=== PATIENT | male | born 1945 | race Caucasian/White ===

== ENCOUNTER 2016-07-14 11:02 | Emergency (ER) | payer MEDICARE, OTHER ==
[~2016-07-14] VITALS: Ht 162.6 cm; Wt 64.0 kg
[~2016-07-14 11:02] MED LIST: AMLO10 PO; ASPI81 PO; ATOR20TA42 PO; CALC0.25 PO; FERR324T4 PO; FURO1TAB93 PO; HUMUINJ5 SC; IMDU30TA PO; KCL20 PO; LANTUSP SQ; LOSA50TA PO; METO50CR PO; OMEP20TA39 PO; REST30CA PO
[2016-07-14 11:07] VITALS: BP 134/56; PULSE 102; RESP 20; TEMP 98; O2SAT 97
[2016-07-14] MEDS ORDERED: HUMALOG SQ (12:42)
[2016-07-14] MEDS ORDERED: CARV3.12 PO (12:42)
[2016-07-14] MEDS ORDERED: ATOR20TA15 PO (12:42)
[2016-07-14] MEDS ORDERED: LANTUS2P SQ (12:42)
[2016-07-14] MEDS ORDERED: ASPI81CH37 CHEW (12:42)
[2016-07-14] MEDS ORDERED: TEMA30CA PO (12:42)
[2016-07-14] MEDS ORDERED: LOSA50TA PO (12:42)
[2016-07-14] MEDS ORDERED: FERR325T PO (12:42)
[2016-07-14] MEDS ORDERED: FURO1TAB60 PO (12:42)
[2016-07-14] MEDS ORDERED: OMEP20TA PO (12:42)
[2016-07-14] MEDS ORDERED: CALC0.25 PO (12:42)
[2016-07-14] MEDS ORDERED: ISOS30TA15 PO (12:42)
--- NOTE | 2016-07-14 13:59 | PD ---
HPI Chief Complaint: Pain: Acute or Chronic Time Seen by Provider: 13:47 Travel History International Travel<30 days: No Contact w/Intl Traveler<30days: No Traveled to known affect area: No History of Present Illness HPI Patient is a 71-year-old male with a history of IDDM, CHF with EF 20-25%, CKD stage III, CABG 2001 and AICD 2010 presenting with complaint of bilateral leg swelling. Patient states that this is new however he has had hospitalization for bilateral pleural effusions in January 2016 here at the time there was trace pedal edema noted. He states that the left one began 4 weeks ago he saw his PCP who told him that it was likely gout. One week from today he went to [facility] where his credit director Dr. Michael performed a right- sided thoracocentesis. He states that the pedal edema did improve somewhat. Last 2 days he's had worsening swelling in both legs and he said some pain in the right ankle. Reports pain in the left ankle has resolved. He denies fever , chills, nausea and vomiting. He denies chest pain, shortness of breath, orthopnea and DAUGHERTY. He is taking Lasix 40 mg twice a day. He denies trauma or injury to the feet or ankles. PFSH Past Medical History Cancer: No Cardiovascular Problems: Yes Congestive Heart Failure: Yes (NEW ONSET THIS VISIT) Diabetes: Yes Patient Takes Glucophage: No Endocrine: Yes Gastrointestinal Disorders: No Genitourinary: Yes Hypertension: Yes Immune Disorder: No Implanted Vascular Access Dvce: Yes Musculoskeletal: No Neurologic: No Psychiatric: No Reproductive: No Respiratory: Yes Tetanus Vaccination: Unknown Past Surgical History Cardiac Surgery: Yes (CABG 10YRS AGO PACEMAKER) Pacemaker: Yes Other Surgery: Yes Social History Alcohol Use: No Tobacco Use: No Substance Use: No Allergies-Medications (Allergen,Severity, Reaction): Coded Allergies: Shellfish (Verified Allergy, Severe, Rash, 07/14/16) Reported Meds & Prescriptions Reported Meds & Active Scripts Active Tramadol (Tramadol HCl) 50 Mg Tab 25 Mg PO Q12HR PRN Cephalexin 500 Mg Tab 500 Mg PO Q12HR Reported Humalog Inj (Insulin Human Lispro) 1,000 Unit/10 Ml Vial 1-9 Units SQ ACHS PRN Max dose at bedtime:( )units; sugars< 70,(0)units; sugars 150-199,(1)unit; sugars 200-249,(3)units; sugars 250-299,(5)units; sugars 300-349,(7)units; sugars more than 349,(9)units. Lantus Inj (Insulin Glargine) 1,000 Unit/10 Ml Vial 25 Units SQ HS Atorvastatin (Atorvastatin Calcium) 20 Mg Tab 20 Mg PO HS Calcitriol 0.25 Mcg Cap 0.25 Mcg PO DAILY Lasix (Furosemide) 40 Mg Tab 40 Mg PO BID Ferrous Sulfate 325 Mg Tab 325 Mg PO TID Omeprazole 20 Mg Tab 20 Mg PO DAILY Carvedilol 3.125 Mg Tab 3.125 Mg PO BID Isosorbide Dinitrate 30 Mg Tab 30 Mg PO DAILY Temazepam 30 Mg Cap 30 Mg PO HS PRN Losartan (Losartan Potassium) 50 Mg Tab 50 Mg PO DAILY Aspirin Low Dose (Aspirin) 81 Mg Chew 81 Mg CHEW DAILY Review of Systems Except as stated in HPI: all other systems reviewed are Neg Physical Exam Narrative GENERAL: Well-developed and well-nourished adult male in no acute distress. SKIN: Band-Aid over the right thoracocentesis site reveals very minimal scabbing without signs of cellulitis or edema. Warm and dry. Good turgor without tenting. HEAD: Normocephalic and atraumatic. EYES: PERRL bilaterally, 5mm. EOMI bilaterally. No injection or icterus present. No proptosis. Lids without edema or erythema. ENT: Buccal mucosa pink and moist. Oropharynx free of erythema, tonsillar hypertrophy, masses, swelling, asymmetry and exudates. Uvula midline and airway patent. NECK: Supple, no midline tenderness, crepitus or step-offs. Trachea midline. Minimal right-sided JVD present. Negative bilateral carotid bruits. No cervical or facial lymphadenopathy. CARDIOVASCULAR: Regular rate and rhythm without murmurs, rubs, clicks or gallops. Radial and posterior tibial pulses 2+ bilaterally. 1+ pedal edema over the distal pretibial surfaces, ankle and feet. Negative bilateral Homans sign. RESPIRATORY: Diffuse crackles in the bilateral lower lung nunez. Otherwise clear to auscultation without rhonchi or wheezing. No distress or use of accessory muscles. GASTROINTESTINAL: Non-tender, non-distended. Normal bowel sounds all 4 quadrants. No masses or organomegaly present. MUSCULOSKELETAL: Bilateral edema around the ankles and dorsum of the foot, minimal erythema without any appreciable warmth. Some tenderness with palpation of the right ankle, normal range of motion of flexion and extension of the right ankle. Patient freely moving all four extremities spontaneously. Extremities without clubbing, cyanosis, or edema. No obvious deformities. NEUROLOGIC: CN II-XII grossly intact. Awake and alert. Motor grossly within normal limits. Normal speech. PSYCHIATRIC: Appropriate mood and affect; insight and judgment normal. Data Data Last Documented VS Vital Signs Date Time Temp Pulse Resp B/P Pulse Ox O2 Delivery O2 Flow Rate FiO2 07/14/16 16:13 87 20 115/59 96 07/14/16 11:07 98.0 Room Air Orders Complete Blood Count With Diff (07/14/16 13:39) Comprehensive Metabolic Panel (07/14/16 13:39) B-Type Natriuretic Peptide (07/14/16 13:39) Act Partial Throm Time (Ptt) (07/14/16 13:39) Prothrombin Time / Inr (Pt) (07/14/16 13:39) Magnesium (Mg) (07/14/16 13:39) Ckmb (Isoenzyme) Profile (07/14/16 13:39) Troponin I (07/14/16 13:39) Electrocardiogram (07/14/16 13:39) Chest, Pa & Lat (07/14/16 13:39) Uric Acid (07/14/16 13:39) Westergren Sedimentation Rate (07/14/16 13:39) C-Reactive Protein (Crp) (07/14/16 13:39) Ankle, Complete ([id number]) (07/14/16 13:39) CKMB (07/14/16 13:50) CKMB% (07/14/16 13:50) Labs Laboratory Tests Test 07/14/16 13:50 White Blood Count 8.4 TH/MM3 Red Blood Count 3.78 MIL/MM3 Hemoglobin 10.9 GM/DL Hematocrit 33.1 % Mean Corpuscular Volume 87.6 FL Mean Corpuscular Hemoglobin 28.9 PG Mean Corpuscular Hemoglobin 33.0 % Concent Red Cell Distribution Width 15.0 % Platelet Count 168 TH/MM3 Mean Platelet Volume 10.8 FL Neutrophils (%) (Auto) 82.2 % Lymphocytes (%) (Auto) 8.2 % Monocytes (%) (Auto) 7.5 % Eosinophils (%) (Auto) 1.3 % Basophils (%) (Auto) 0.8 % Neutrophils # (Auto) 6.9 TH/MM3 Lymphocytes # (Auto) 0.7 TH/MM3 Monocytes # (Auto) 0.6 TH/MM3 Eosinophils # (Auto) 0.1 TH/MM3 Basophils # (Auto) 0.1 TH/MM3 CBC Comment DIFF FINAL Differential Comment Erythrocyte Sedimentation Rate 71 mm/hr Prothrombin Time 11.2 SEC Prothromb Time International 1.0 RATIO Ratio Activated Partial 29.9 SEC Thromboplast Time Sodium Level 140 MEQ/L Potassium Level 4.3 MEQ/L Chloride Level 105 MEQ/L Carbon Dioxide Level 23.7 MEQ/L Anion Gap 11 MEQ/L Blood Urea Nitrogen 67 MG/DL Creatinine 2.83 MG/DL Estimat Glomerular Filtration 22 ML/MIN Rate Random Glucose 214 MG/DL Uric Acid 8.7 MG/DL Calcium Level 8.7 MG/DL Magnesium Level 2.5 MG/DL Total Bilirubin 0.5 MG/DL Aspartate Amino Transf 14 U/L (AST/SGOT) Alanine Aminotransferase 37 U/L (ALT/SGPT) Alkaline Phosphatase 166 U/L Total Creatine Kinase 118 U/L Creatine Kinase MB 2.8 NG/ML Troponin I 0.03 NG/ML C-Reactive Protein 6.86 MG/DL B-Type Natriuretic Peptide 1811 PG/ML Total Protein 7.8 GM/DL Albumin 3.4 GM/DL MDM Medical Decision Making Medical Screen Exam Complete: Yes Emergency Medical Condition: Yes Interpretation(s) Laboratory Tests Test 07/14/16 13:50 White Blood Count 8.4 TH/MM3 (4.0-11.0) Red Blood Count 3.78 MIL/MM3 (4.50-5.90) Hemoglobin 10.9 GM/DL (13.0-17.0) Hematocrit 33.1 % (39.0-51.0) Mean Corpuscular Volume 87.6 FL (80.0-100.0) Mean Corpuscular Hemoglobin 28.9 PG (27.0-34.0) Mean Corpuscular Hemoglobin 33.0 % Concent (32.0-36.0) Red Cell Distribution Width 15.0 % (11.6-17.2) Platelet Count 168 TH/MM3 (150-450) Mean Platelet Volume 10.8 FL (7.0-11.0) Neutrophils (%) (Auto) 82.2 % (16.0-70.0) Lymphocytes (%) (Auto) 8.2 % (9.0-44.0) Monocytes (%) (Auto) 7.5 % (0.0-8.0) Eosinophils (%) (Auto) 1.3 % (0.0-4.0) Basophils (%) (Auto) 0.8 % (0.0-2.0) Neutrophils # (Auto) 6.9 TH/MM3 (1.8-7.7) Lymphocytes # (Auto) 0.7 TH/MM3 (1.0-4.8) Monocytes # (Auto) 0.6 TH/MM3 (0-0.9) Eosinophils # (Auto) 0.1 TH/MM3 (0-0.4) Basophils # (Auto) 0.1 TH/MM3 (0-0.2) CBC Comment DIFF FINAL Differential Comment Erythrocyte Sedimentation Rate 71 mm/hr (0-20) Prothrombin Time 11.2 SEC (9.8-11.6) Prothromb Time International 1.0 RATIO Ratio Activated Partial 29.9 SEC Thromboplast Time (24.3-30.1) Sodium Level 140 MEQ/L (136-145) Potassium Level 4.3 MEQ/L (3.5-5.1) Chloride Level 105 MEQ/L (98-107) Carbon Dioxide Level 23.7 MEQ/L (21.0-32.0) Anion Gap 11 MEQ/L (5-15) Blood Urea Nitrogen 67 MG/DL (7-18) Creatinine 2.83 MG/DL (0.60-1.30) Estimat Glomerular Filtration 22 ML/MIN (>89) Rate Random Glucose 214 MG/DL (74-106) Uric Acid 8.7 MG/DL (2.6-7.2) Calcium Level 8.7 MG/DL (8.5-10.1) Magnesium Level 2.5 MG/DL (1.5-2.5) Total Bilirubin 0.5 MG/DL (0.2-1.0) Aspartate Amino Transf 14 U/L (15-37) (AST/SGOT) Alanine Aminotransferase 37 U/L (12-78) (ALT/SGPT) Alkaline Phosphatase 166 U/L (45-117) Total Creatine Kinase 118 U/L (39-308) Creatine Kinase MB 2.8 NG/ML (0.5-3.6) Troponin I 0.03 NG/ML (0.02-0.05) C-Reactive Protein 6.86 MG/DL (0.00-0.30) B-Type Natriuretic Peptide 1811 PG/ML (0-100) Total Protein 7.8 GM/DL (6.4-8.2) Albumin 3.4 GM/DL (3.4-5.0) Last 24 hours Impressions Chest X-Ray 07/14/16 0099 Signed Impressions: Service Date/Time: June 15:16 - CONCLUSION: 1. There is a moderate right effusion and small left effusion, with compressive atelectasis of the right lung base.The effusion on the right has increased since examination from January 2016. There is global cardiomegaly. Findings may represent mild congestive heart failure. Candelario Nance MD Ankle X-Ray 07/14/16 4633 Signed Impressions: Service Date/Time: June 15:20 - CONCLUSION: 1. Soft tissue swelling of the right ankle. Vascular calcifications. No acute bony abnormality. Candelario Nance MD Differential Diagnosis CHF exacerbation vs cellulitis vs gout vs DVT vs septic joint unlikely Narrative Course Workup initiated in triage. Once a medical bed becomes available, patient will be transferred and care assumed by next provider. Patient is a 71-year-old male with history of IDDM, CHF with 2025% EF, CKD stage III, CABG and AICD presenting with complaint of swelling and pain in his feet off and on for several weeks. He is a somewhat poor historian and seems to think this is variable and has no chronic edema however given his EF and prior notes show that he does have trace bilateral pedal edema I believe this most like represents a CHF exacerbation because he additionally has fine crackles at the bases bilaterally. He has no cardiopulmonary symptoms at this time. There is very mild erythema and very minimal warmth over the feet bilaterally but he has good range of motion both ankles and only mild tenderness in the right ankle. The edema in the calves is distal just around the ankles and he has no pain with palpation of the bilateral calves. Ordered x -ray of the ankle on the right. Ordered EKG, chest x-ray, labs including BMP, troponin, uric acid, ESR and CRP. EKG sinus rhythm with marked left axis deviation and ST depression and T-wave inversion in leads 1, aVL, V5 and V6 which was present on previous EKG. CBC shows WBC of 8.4. H&H 10.9/33.1 which is chronic. Uric acid 8.7. Sedimentation rate 71. CRP 6.86. BUN 67, creatinine 2.83 again this is chronic. Glucose 214. AST 14, ALT 37, ALP 166. CK-MB 2.8. Troponin 0.03 which is lower than previous 2 visits, likely residual from poor kidney function. BNP 1811. Chest x-ray shows moderate right-sided effusion and trace left-sided effusion with prominent cardiomegaly. I reviewed this with Dr. Fernandes who looked at the chest x-ray film and recommended speaking to the patient's credit director. If he elects for outpatient follow-up will prescribe Keflex for cellulitis and have patient follow-up with his PCP. At the patient has no Tenderness or significant edema and can range the ankle normally additional workup for DVT and septic joint unnecessary. Spoke with Dr. Michael who recommends having the patient follow with him tomorrow. As the patient is asymptomatic and not hypoxic and consistently has some level of effusion he does not believe it has to be drained emergently. I spends the patient and recommended return if develops any cardiopulmonary symptoms. I did recommend he take an additional Lasix today and follow-up tomorrow with further care. I will prescribe Keflex for minimal cellulitis of the bilateral feet and given tramadol for pain.See discharge paperwork for further instructions. The plan was discussed with the patient who acknowledged their understanding and agreement. Reinforced the follow-up with primary care is critically important. Patient instructed on emergent conditions that should prompt return to ED. Diagnosis Primary Impression: Bilateral pleural effusion Additional Impression: Cellulitis Qualified Code: L03.119 - Cellulitis of lower extremity, unspecified laterality Patient Instructions: Cellulitis (ED), General Instructions Additional Instructions: Take medications as prescribed Recommend taking your furosemide 3 times today rather than the usual [address] Michael first thing in the morning to establish a follow up plan Follow up with your PCP for cellulitis tomorrow Return to the ED for any acute worsening of symptoms including worsening swelling, worsening pain, fever, chest pain, shortness of breath Med/Other Pt SpecificInfo: Prescription(s) given Scripts Tramadol 50 Mg Tab25 Mg PO Q12HR PRN (PAIN) #6 TAB Ref 0 Prov:Jackie Fernandes MD 07/14/16 Cephalexin 500 Mg [id number] Mg PO Q12HR #20 TAB Prov:Jackie Fernandes MD 07/14/16 Disposition: 01 DISCHARGE HOME Condition: Stable Spencer Osborne III Jul 14, 2016 13:59
[2016-07-14 14:14] LABS: AUTOMATED NEUTROPHIL # 6.9 TH/MM3 (1.8-7.7); BASOPHIL # 0.1 TH/MM3 (0-0.2); BASOPHIL % 0.8 % (0.0-2.0); EOSINOPHIL # 0.1 TH/MM3 (0-0.4); EOSINOPHIL % 1.3 % (0.0-4.0); HEMATOCRIT 33.1 % (39.0-51.0); HEMO FLAGS DIFF FINAL; LYMPH % 8.2 % (9.0-44.0); LYMPHOCYTE # 0.7 TH/MM3 (1.0-4.8); MEAN CELL VOLUME 87.6 FL (80.0-100.0); MEAN CORPUSCULAR HEMOGLOBIN 28.9 PG (27.0-34.0); MONO % 7.5 % (0.0-8.0); NEUT % 82.2 % (16.0-70.0); PLATELET COUNT 168 TH/MM3 (150-450); RED BLOOD COUNT 3.78 MIL/MM3 (4.50-5.90); WHITE BLOOD COUNT 8.4 TH/MM3 (4.0-11.0)
[2016-07-14 14:20] LABS: APTT (PATIENT) 29.9 SEC (24.3-30.1); PROTHROMBIN TIME - PATIENT 11.2 SEC (9.8-11.6)
[2016-07-14 14:23] LABS: ALT (GPT) 37 U/L (12-78); ANION GAP 11 MEQ/L (5-15); AST (GOT) 14 U/L (15-37); BICARBONATE 23.7 MEQ/L (21.0-32.0); BLOOD UREA NITROGEN 67 MG/DL (7-18); CHLORIDE 105 MEQ/L (98-107); GLOMERULAR FILTRATION RATE 22 ML/MIN (>89); MAGNESIUM 2.5 MG/DL (1.5-2.5); POTASSIUM 4.3 MEQ/L (3.5-5.1); SODIUM (NA) 140 MEQ/L (136-145); URIC ACID 8.7 MG/DL (2.6-7.2)
[2016-07-14 14:25] LABS: ALKALINE PHOSPHATASE 166 U/L (45-117); CREATINE KINASE 118 U/L (39-308); TOTAL BILIRUBIN ADULT 0.5 MG/DL (0.2-1.0)
[2016-07-14 14:38] LABS: CKMB 2.8 NG/ML (0.5-3.6)
--- NOTE | 2016-07-14 15:39 | RADRPT ---
EXAM DATE/TIME: 07/14/2016 15:16 [facility] COMPARISON: CHEST EXPIRATION ONLY, February 19, 2016, 15:17. INDICATIONS : Lower extremity swelling since yesterday. MEDICAL HISTORY : Myocardial infarction. Hypertension. Congestive heart failure. Dyspnea. Renal disease. Diabetes. Feve r. SURGICAL HISTORY : Pacemaker. CABG. Right toe amputated. ENCOUNTER: Initial ACUITY: 2 days PAIN SCORE: 0/10 LOCATION: Bilateral chest FINDINGS: There is global cardiomegaly. Pacer leads overlie right atrium and right ventricle. Moderate size rig ht pleural effusion. No focal consolidation. Questionable minimal interstitial edema. Trace left pleu ral fluid. No pneumothorax. CONCLUSION: 1. There is a moderate right effusion and small left effusion, with compressive atelectasis of the ri ght lung base.The effusion on the right has increased since examination from January 2016. There is global cardiomegaly. Findings may represent mild congestive heart failure. Candelario Nance MD on July 14, 2016 at 15:33 Board Certified Radiologist. This report was verified electronically.
--- NOTE | 2016-07-14 15:43 | RADRPT ---
EXAM DATE/TIME: 07/14/2016 15:20 [facility] COMPARISON: No previous studies available for comparison. INDICATIONS : Right ankle swelling since yesterday. MEDICAL HISTORY : Myocardial infarction. Hypertension. Congestive heart failure. Dyspnea. Renal disease. Diabetes. Feve r. SURGICAL HISTORY : Pacemaker. CABG. Right toe amputated. ENCOUNTER: Initial ACUITY: 2 days PAIN SCORE: 0/10 LOCATION: Right ankle. FINDINGS: There is soft tissue swelling at the ankle, especially over the lateral malleolus. There's no acute f racture or dislocation. Vascular calcifications are present. CONCLUSION: 1. Soft tissue swelling of the right ankle. Vascular calcifications. No acute bony abnormality. Candelario Nance MD on July 14, 2016 at 15:37 Board Certified Radiologist. This report was verified electronically.
[2016-07-14 16:13] VITALS: BP 115/59; PULSE 87; RESP 20; O2SAT 96
[2016-07-14] MEDS ORDERED: CEPH500T PO (16:22)
[2016-07-14] MEDS ORDERED: TRAM50TA PO (16:23)
--- NOTE | 2016-07-15 17:19 | EKG ---
Date Performed: 07/14/2016 Time Performed: 14:25:02 PTAGE: 71 years EKG: UNCERTAIN IRREGULAR RHYTHM MARKED LEFT AXIS DEVIATION MODERATE INTRAVENTRICULAR CONDUCTION DELAY ST DEVIATION AND MODERATE T-WAVE ABNORMALITY, CONSIDER LATERAL ISCHEMIA ABNORMAL ECG PREVIOUS TRACING : 07/14/2016 14.08 Rhythm remains uncertain. Largely unchanged from prior trac ing. DOCTOR: Cholo Leal Interpretating Date/Time 07/18/2016 09:23:02
== END 2016-07-14 16:50 | disposition home or self-care (01) ==
LOC: NETRI 11:02
DX: J90 Pleural effusion, not elsewhere classified (principal); L03.119 Cellulitis of unspecified part of limb; I12.9 Hypertensive chronic kidney disease with stage 1 through stage 4 chronic kidney disease, or unspecified chronic kidney disease; E11.22 Type 2 diabetes mellitus with diabetic chronic kidney disease; N18.3 Chronic kidney disease, stage 3 (moderate); I50.9 Heart failure, unspecified; M79.89 Other specified soft tissue disorders; R94.31 Abnormal electrocardiogram [ECG] [EKG]; Z79.4 Long term (current) use of insulin; Z95.1 Presence of aortocoronary bypass graft; Z95.810 Presence of automatic (implantable) cardiac defibrillator
CPT/HCPCS: 71020; 73610; 80053; 82550; 82552; 83735; 83880; 84484; 84550; 85025; 85610; 85652; 85730; 86140; 93005

== ENCOUNTER 2016-09-25 17:59 | Emergency (ER) | payer OTHER ==
[~2016-09-25] VITALS: Ht 162.6 cm; Wt 64.0 kg
[~2016-09-25 17:59] MED LIST changes: -AMLO10 PO; -ASPI81 PO; +ASPI81CH37 CHEW; +ATOR20TA15 PO; -ATOR20TA42 PO; +CARV3.12 PO; +CEPH500T PO; -FERR324T4 PO; +FERR325T PO; +FURO1TAB60 PO; -FURO1TAB93 PO; +HUMALOG SQ; -HUMUINJ5 SC; -IMDU30TA PO; +ISOS30TA15 PO; -KCL20 PO; +LANTUS2P SQ; -LANTUSP SQ; -METO50CR PO; +OMEP20TA PO; -OMEP20TA39 PO; -REST30CA PO; +TEMA30CA PO; +TRAM50TA PO
[2016-09-25 18:02] VITALS: BP 123/59; PULSE 88; RESP 24; TEMP 98.1; O2SAT 99
--- NOTE | 2016-09-25 18:26 | PD ---
HPI Chief Complaint: Respiratory Distress Time Seen by Provider: 18:11 Travel History International Travel<30 days: No Contact w/Intl Traveler<30days: No Traveled to known affect area: No History of Present Illness HPI He complains of shortness of breath. Duration is 3 days. Severity is moderate. History of recurrent right sided pleural effusion and had thoracentesis 9 days ago. He has chronic leg swelling and reports compliance with his diuretic. He says his congestive heart failure is what is the cause of his recurrent pleural effusions. He denies history of cancer. He quit smoking 10 years ago. No fever or productive cough. He is not having any chest pain. He reports recent increased weight gain due to water retention. PFSH Past Medical History Cancer: No Cardiovascular Problems: Yes (PACEMAKER) Congestive Heart Failure: Yes (NEW ONSET THIS VISIT) Diabetes: Yes Endocrine: Yes Gastrointestinal Disorders: No Genitourinary: Yes Hypertension: Yes Immune Disorder: No Implanted Vascular Access Dvce: Yes Musculoskeletal: No Neurologic: No Psychiatric: No Reproductive: No Respiratory: Yes Past Surgical History Cardiac Surgery: Yes (CABG 10YRS AGO PACEMAKER) Pacemaker: Yes Other Surgery: Yes Social History Alcohol Use: No Tobacco Use: No Substance Use: No Allergies-Medications (Allergen,Severity, Reaction): Coded Allergies: Shellfish (Verified Allergy, Severe, Rash, 07/14/16) Reported Meds & Prescriptions Reported Meds & Active Scripts Active Tramadol (Tramadol HCl) 50 Mg Tab 25 Mg PO Q12HR PRN Cephalexin 500 Mg Tab 500 Mg PO Q12HR Reported Humalog Inj (Insulin Human Lispro) 1,000 Unit/10 Ml Vial 1-9 Units SQ ACHS PRN Max dose at bedtime:( )units; sugars< 70,(0)units; sugars 150-199,(1)unit; sugars 200-249,(3)units; sugars 250-299,(5)units; sugars 300-349,(7)units; sugars more than 349,(9)units. Lantus Inj (Insulin Glargine) 1,000 Unit/10 Ml Vial 25 Units SQ HS Atorvastatin (Atorvastatin Calcium) 20 Mg Tab 20 Mg PO HS Calcitriol 0.25 Mcg Cap 0.25 Mcg PO DAILY Lasix (Furosemide) 40 Mg Tab 40 Mg PO BID Ferrous Sulfate 325 Mg Tab 325 Mg PO TID Omeprazole 20 Mg Tab 20 Mg PO DAILY Carvedilol 3.125 Mg Tab 3.125 Mg PO BID Isosorbide Dinitrate 30 Mg Tab 30 Mg PO DAILY Temazepam 30 Mg Cap 30 Mg PO HS PRN Losartan (Losartan Potassium) 50 Mg Tab 50 Mg PO DAILY Aspirin Low Dose (Aspirin) 81 Mg Chew 81 Mg CHEW DAILY Review of Systems General / Constitutional: Positive: Weight Gain, No: Fever Eyes: No: Visual changes HENT: No: Headaches Cardiovascular: Positive: Edema, No: Chest Pain or Discomfort Respiratory: Positive: Shortness of Breath Gastrointestinal: No: Abdominal Pain Genitourinary: No: Dysuria Musculoskeletal: Positive: Edema, No: Pain Skin: No Rash Neurologic: No: Weakness Psychiatric: No: Depression Endocrine: No: Polydipsia Hematologic/Lymphatic: No: Easy Bruising Physical Exam Narrative GENERAL: Well-nourished, well-developed patient in no apparent distress. SKIN: Focused skin assessment reveals no rash and nodules. Skin is Warm and dry. HEAD: Atraumatic. Normocephalic. EYES: Pupils equal and round. No scleral icterus. No injection or drainage. ENT: No nasal bleeding or discharge. Mucous membranes pink and moist. NECK: Trachea midline. No JVD. CARDIOVASCULAR: Regular rate and rhythm. No murmur appreciated. RESPIRATORY: No accessory muscle use. Clear to auscultation. Breath sounds equal bilaterally. GASTROINTESTINAL: Abdomen soft, non-tender, nondistended. Hepatic and splenic margins not palpable. MUSCULOSKELETAL: No obvious deformities. No clubbing. No cyanosis. Symmetric edema the feet ankles and lower legs NEUROLOGICAL: Awake and alert. No obvious cranial nerve deficits. Motor grossly within normal limits. Normal speech. PSYCHIATRIC: Appropriate mood and affect; insight and judgment normal. Data Data Last Documented VS Vital Signs Date Time Temp Pulse Resp B/P Pulse Ox O2 Delivery O2 Flow Rate FiO2 09/25/16 18:32 96 09/25/16 18:02 98.1 88 24 123/59 Orders Electrocardiogram (09/25/16 ) Chest, Single Ap (09/25/16 ) [facility] Medical Decision Making Medical Screen Exam Complete: Yes Emergency Medical Condition: Yes Medical Record Reviewed: Yes Differential Diagnosis Recurrent pleural effusion, pneumonia, CHF Narrative Course I have reviewed the patient's electronic medical record. Patient was here June 2016 for pleural effusion I reviewed today's chest x-ray and compared it to the one in June. He does have a moderate pleural effusion today but it's not quite as large as it was in June Saturation is 99% on room air and he is not dyspneic No indication for emergent thoracentesis or hospitalization This is a chronic problem he's had for a long time I reviewed his EKG which shows no acute ST elevation. No indication of ACS, he had no chest pain or discomfort I gave him a 2 mg dose of Bumex now Recommend he double his Bumex for the next 3 days Discussed low-sodium diet and knee high compression stockings and elevation of legs He should call his high school music teacher tomorrow for follow-up Diagnosis Primary Impression: Pleural effusion due to CHF (congestive heart failure) Additional Instructions: Take 2 mg of Bumex twice a day for the next 3 days then return to normal dosing Avoid salt in diet Wear knee-high compression stockings Elevate legs Call your high school music teacher tomorrow for follow-up Med/Other Pt SpecificInfo: Other Disposition: 01 DISCHARGE HOME Condition: Stable Frederic Ayala MD Sep 25, 2016 18:26
--- NOTE | 2016-09-25 18:55 | RADRPT ---
EXAM DATE/TIME: 09/25/2016 18:23 [facility] COMPARISON: CHEST PA & LAT, July 14, 2016, 15:16. INDICATIONS : Shortness of breath. MEDICAL HISTORY : SURGICAL HISTORY : Pacemaker. ENCOUNTER: Initial ACUITY: 1 day PAIN SCORE: 0/10 LOCATION: Bilateral chest FINDINGS: Right basilar opacity is present may be due to a combination of consolidation and or pleural effusion . There is evidence for prior median sternotomy. Left subclavian pacer wires are present with tips in the right atrium and right ventricle. Cardiomegaly has not changed. There are atherosclerotic calcif ications of the aorta due to chronic atherosclerotic disease. CONCLUSION: No appreciable change. Princess Zapata MD on September 25, 2016 at 18:52 Board Certified Radiologist. This report was verified electronically.
[2016-09-25] MEDS ORDERED: BUMETANIDE 1 MG TAB PO ONE (19:00)
--- NOTE | 2016-09-26 22:58 | EKG ---
Date Performed: 09/25/2016 Time Performed: 18:29:32 PTAGE: 71 years EKG: JUNCTIONAL RHYTHM LEFT ANTERIOR FASCICULAR BLOCK ST DEVIATION AND MODERATE T-WAVE ABNORMALI TY, CONSIDER LATERAL ISCHEMIA ABNORMAL ECG PREVIOUS TRACING : 07/14/2016 14.25 Compared to prior tracing no significant change DOCTOR: Magno Copeland Interpretating Date/Time 09/26/2016 22:58:26
== END 2016-09-25 19:19 | disposition home or self-care (01) ==
LOC: NEPC 17:59
DX: J90 Pleural effusion, not elsewhere classified (principal); I50.9 Heart failure, unspecified; I10 Essential (primary) hypertension; Z87.891 Personal history of nicotine dependence
CPT/HCPCS: 71010; 93005

== ENCOUNTER 2016-10-20 21:58 | Inpatient (IN) | payer OTHER, MEDICARE ==
[~2016-10-20 21:58] MED LIST changes: -CEPH500T PO; -FURO1TAB60 PO; -TRAM50TA PO
[2016-10-20 22:01] VITALS: BP 123/80; PULSE 112; RESP 18; TEMP 99.7; O2SAT 97
--- NOTE | 2016-10-20 22:20 | PD ---
HPI Chief Complaint: Fever Time Seen by Provider: 22:20 Travel History International Travel<30 days: No Contact w/Intl Traveler<30days: No Traveled to known affect area: No History of Present Illness HPI 71-year-old male came to the emergency room brought by his and son with history of fever. Patient has severe cardiomyopathy and sees crystallographer from [facility] in [place]. He had a PICC line put in for IV dobutamine 2 weeks ago. Patient is on continuous infusion for that. Patient says he was eating his dinner with his family when all of a sudden he started getting chills and rigor. Family took his temperature and it was 101.7. They consulted with the nurse over the phone and gave him Advil and Tylenol. And then decided to bring him to the emergency room. Patient is awake and answering questions appropriately. His temperature is 99.7. He has some shortness of breath but not coughing. Patient says he has an appointment with his cardiologists at [facility] more morning. His blood pressure was 88 systolic on arrival. Patient denies any dizziness or lightheadedness. [facility] Past Medical History Narrative Medical List of his past medical, surgical, social and family history was reviewed from the nursing note. Cancer: No Cardiovascular Problems: Yes (PACEMAKER) Congestive Heart Failure: Yes (NEW ONSET THIS VISIT) Diabetes: Yes Patient Takes Glucophage: No Endocrine: Yes Gastrointestinal Disorders: No Genitourinary: Yes Hypertension: Yes Immune Disorder: No Implanted Vascular Access Dvce: Yes Musculoskeletal: No Neurologic: No Psychiatric: No Reproductive: No Respiratory: Yes ?: Not Past Surgical History Cardiac Surgery: Yes (CABG 10YRS AGO PACEMAKER) Pacemaker: Yes Other Surgery: Yes Social History Alcohol Use: No Tobacco Use: No Substance Use: No Allergies-Medications (Allergen,Severity, Reaction): Coded Allergies: Shellfish (Verified Allergy, Severe, Rash, 09/25/16) Comments List of his allergies reviewed from the nursing note. Reported Meds & Prescriptions Reported Meds & Active Scripts Active Reported Ciprofloxacin Opth Drops (Ciprofloxacin HCl) 0.3% Soln 2 Drop RIGHT EYE Q2H while awake x 5 days. Durezol Opth (Difluprednate Opth) 0.05% Emul Dobutamine-D5W 500 Mg/250 Ml Bag Humalog Inj (Insulin Human Lispro) 1,000 Unit/10 Ml Vial 1-9 Units SQ ACHS PRN Max dose at bedtime:( )units; sugars< 70,(0)units; sugars 150-199,(1)unit; sugars 200-249,(3)units; sugars 250-299,(5)units; sugars 300-349,(7)units; sugars more than 349,(9)units. Lantus Inj (Insulin Glargine) 1,000 Unit/10 Ml Vial 25 Units SQ HS Atorvastatin (Atorvastatin Calcium) 20 Mg Tab 20 Mg PO HS Calcitriol 0.25 Mcg Cap 0.25 Mcg PO DAILY Omeprazole 20 Mg Tab 20 Mg PO DAILY Carvedilol 3.125 Mg Tab 3.125 Mg PO BID Isosorbide Dinitrate 30 Mg Tab 30 Mg PO DAILY Temazepam 30 Mg Cap 30 Mg PO HS PRN Aspirin Low Dose (Aspirin) 81 Mg Chew 81 Mg CHEW DAILY Narrative Medication List of his home medications reviewed from the nursing note. Review of Systems Except as stated in HPI: all other systems reviewed are Neg Physical Exam Narrative GENERAL: Awake, alert, moderate distress SKIN: Focused skin assessment warm/dry. Pale HEAD: Atraumatic. Normocephalic. EYES: Pupils equal and round. No scleral icterus. No injection or drainage. Pallor ENT: No nasal bleeding or discharge. Mucous membranes pink and moist. NECK: Trachea midline. No JVD. CARDIOVASCULAR: Regular rate and rhythm. No murmur appreciated. RESPIRATORY: No accessory muscle use. Coarse crackles in the right base. Clear to auscultation. Breath sounds equal bilaterally. GASTROINTESTINAL: Abdomen soft, non-tender, nondistended. Hepatic and splenic margins not palpable. MUSCULOSKELETAL: No obvious deformities. No clubbing. No cyanosis. No edema. NEUROLOGICAL: Awake and alert. No obvious cranial nerve deficits. Motor grossly within normal limits. Normal speech. PSYCHIATRIC: Appropriate mood and affect; insight and judgment normal. Data Data Last Documented VS Vital Signs Date Time Temp Pulse Resp B/P Pulse Ox O2 Delivery O2 Flow Rate FiO2 10/21/16 00:10 73/42 10/20/16 22:48 18 96 10/20/16 22:01 99.7 112 Room Air Orders Complete Blood Count With Diff (10/20/16 22:28) Comprehensive Metabolic Panel (10/20/16 22:28) Lactic Acid Sepsis Protocol (10/20/16 22:28) Urinalysis - C+S If Indicated (10/20/16 22:28) Blood Culture (10/20/16 22:28) Chest, Single Ap (10/20/16 22:28) Blood Glucose (10/20/16 22:28) Ecg Monitoring (10/20/16 22:28) Iv Access Insert/Monitor (10/20/16 22:28) Oximetry (10/20/16 22:28) Oxygen Administration (10/20/16 22:28) Sodium Chlorid 0.9% 500 Ml Inj (Ns 500 M (10/20/16 23:00) Piperacil-Tazo 4.5 Gm Premix (Zosyn 4.5 (10/20/16 23:00) Vancomycin Inj (Vancomycin Inj) (10/20/16 23:00) Norepinephrine-Dextrose Drip (Levophed-D (10/21/16 00:15) Terbutaline Inj (Brethine Inj) (10/21/16 00:15) Lactic Acid Sepsis Protocol (10/21/16 00:08) Admit Order (Ed Use Only) (10/21/16 00:22) Labs Laboratory Tests Test 10/20/16 22:41 White Blood Count 7.1 TH/MM3 Red Blood Count 3.29 MIL/MM3 Hemoglobin 8.4 GM/DL Hematocrit 26.2 % Mean Corpuscular Volume 79.5 FL Mean Corpuscular Hemoglobin 25.6 PG Mean Corpuscular Hemoglobin 32.2 % Concent Red Cell Distribution Width 17.0 % Platelet Count 141 TH/MM3 Mean Platelet Volume 10.1 FL Neutrophils (%) (Auto) 87.4 % Lymphocytes (%) (Auto) 3.2 % Monocytes (%) (Auto) 5.9 % Eosinophils (%) (Auto) 3.3 % Basophils (%) (Auto) 0.2 % Neutrophils # (Auto) 6.2 TH/MM3 Lymphocytes # (Auto) 0.2 TH/MM3 Monocytes # (Auto) 0.4 TH/MM3 Eosinophils # (Auto) 0.2 TH/MM3 Basophils # (Auto) 0.0 TH/MM3 CBC Comment DIFF FINAL Differential Comment Lactic Acid Level 1.8 mmol/L Sodium Level 134 MEQ/L Potassium Level 3.9 MEQ/L Chloride Level 97 MEQ/L Carbon Dioxide Level 21.9 MEQ/L Anion Gap 15 MEQ/L Blood Urea Nitrogen 75 MG/DL Creatinine 3.92 MG/DL Estimat Glomerular Filtration 15 ML/MIN Rate Random Glucose 52 MG/DL Calcium Level 7.9 MG/DL Total Bilirubin 0.7 MG/DL Aspartate Amino Transf 23 U/L (AST/SGOT) Alanine Aminotransferase 29 U/L (ALT/SGPT) Alkaline Phosphatase 147 U/L Total Protein 6.7 GM/DL Albumin 2.7 GM/DL MDM Medical Decision Making Medical Screen Exam Complete: Yes Emergency Medical Condition: Yes Medical Record Reviewed: Yes Differential Diagnosis Sepsis, pneumonia, UTI Narrative Course 12:41 AM blood test results are back and patient has slight anemia and thrombocytopenia. His renal function is significantly compromised. I discussed the case with the crystallographer at [facility] in [place] Dr. Millard. He wanted the patient to be stabilized before being transferred to the hospital. He wanted the patient to be admitted to the ICU under our safe and vault installer service. I have discussed the case with Dr. Leroy from ICU who has accepted the patient. I let the patient and his family know about this plan and they're comfortable with it. Patient was given IV Zosyn and vancomycin to cover for sepsis. Given his poor cardiac condition IV gave him only 500 cc of IV fluid bolus. The crystallographer from [place] agreed with this. His blood pressure continued to be low and the last blood pressure was 73/45 and I have started him on a norepinephrine drip. Critical Care Narrative Aggregate critical care time was 75 minutes. Time to perform other separately billable procedures was not included in the critical care time. My time did not include minutes spent treating any other patients simultaneously or on activities that did not directly contribute to the patient's treatment. The services I provided to this patient were to treat and/or prevent clinically significant deterioration that could result in: Septic shock, cardiomyopathy I provided critical care services requiring my management, as noted below: Chart data review, documentation time, medication orders and management, vital sign assessments/reviewing monitor data, ordering and reviewing lab tests, ordering and interpreting/reviewing x-rays and diagnostic studies, care of the patient and discussion of the patient with the admitting physicians. Procedures EKG Prior to Arrival: No Physician Communication Physician Communication Dr. Leroy, Dr. millard Diagnosis Primary Impression: Septic shock Additional Impressions: Cardiomyopathy Qualified Code: I42.9 - Cardiomyopathy, unspecified type Renal failure Qualified Code: N19 - Renal failure, unspecified chronicity Admitting Information Admitting Physician Requests: Jackie Simmons MD October 20, 2016 22:20 treating any other patients simultaneously or on activities that did not directly contribute to the patient's treatment. The services I provided to this patient were to treat and/or prevent clinically significant deterioration that could result in: Septic shock, cardiomyopathy I provided critical care services requiring my management, as noted below: Chart data review, documentation time, medication orders and management, vital sign assessments/reviewing monitor data, ordering and reviewing lab tests, ordering and interpreting/reviewing x-rays and diagnostic studies, care of the patient and discussion of the patient with the admitting physicians. Procedures EKG Prior to Arrival: No Physician Communication Physician Communication Dr. Leroy, Dr. millard Diagnosis Primary Impression: Septic shock Additional Impressions: Cardiomyopathy Qualified Code: I42.9 - Cardiomyopathy, unspecified type Renal failure Qualified Code: N19 - Renal failure, unspecified chronicity Admitting Information Admitting Physician Requests: Jackie Simmons MD October 20, 2016 22:20
[2016-10-20 22:48] VITALS: RESP 18; O2SAT 96
--- NOTE | 2016-10-20 22:55 | RADRPT ---
EXAM DATE/TIME: 10/20/2016 22:44 [place] COMPARISON: CHEST SINGLE AP, September 25, 2016, 18:23. INDICATIONS : Cough and fever for a few days. MEDICAL HISTORY : Myocardial infarction. Hypertension. Congestive heart failure. Dyspnea. Renal disease. Diabetes. SURGICAL HISTORY : Pacemaker. CABG. Right toe amputated. ENCOUNTER: Initial ACUITY: 3 days PAIN SCORE: 2/10 LOCATION: Bilateral chest FINDINGS: A single view of the chest demonstrates the right-sided PICC line, left subclavian bipolar pacer in n umerous sternal wires are unchanged. The heart remains enlarged. Bilateral pleural effusions moderate on the right tiny on the left. No significant interval change since August. Osseous structures are i ntact. CONCLUSION: Stable bilateral pleural effusions right clearly larger than left. Heart remains enlarged.. Jhonny Steele MD on October 20, 2016 at 22:53 Board Certified Radiologist. This report was verified electronically.
[2016-10-20 22:59] VITALS: BP 80/58
[2016-10-20] MEDS ORDERED: DIFL0.0512 (22:59)
[2016-10-20] MEDS ORDERED: CIPR0.3S2 RIGHT EYE (22:59)
[2016-10-20] MEDS ORDERED: [UNRECOGNIZED DRUG - CODE] (22:59)
[2016-10-20] MEDS ORDERED: PIPERACIL-TAZO 4.5 GM PREMIX 100 ML IV ONE (23:00)
[2016-10-20] MEDS ORDERED: VANCOMYCIN INJ 1,000 MG in SODIUM CHLOR 0.9% 250 ML INJ 250 ML IV ONE (23:00)
[2016-10-20] MEDS ORDERED: SODIUM CHLORID 0.9% 500 ML INJ 500 ML IV ONE (23:00)
[2016-10-20 23:09] LABS: AUTOMATED NEUTROPHIL # 6.2 TH/MM3 (1.8-7.7); BASOPHIL % 0.2 % (0.0-2.0); EOSINOPHIL # 0.2 TH/MM3 (0-0.4); EOSINOPHIL % 3.3 % (0.0-4.0); HEMATOCRIT 26.2 % (39.0-51.0); HEMO FLAGS DIFF FINAL; LYMPH % 3.2 % (9.0-44.0); LYMPHOCYTE # 0.2 TH/MM3 (1.0-4.8); MEAN CELL VOLUME 79.5 FL (80.0-100.0); MEAN CORPUSCULAR HEMOGLOBIN 25.6 PG (27.0-34.0); MEAN CORPUSCULAR HGB CONC 32.2 % (32.0-36.0); MONO % 5.9 % (0.0-8.0); NEUT % 87.4 % (16.0-70.0); PLATELET COUNT 141 TH/MM3 (150-450); RED BLOOD COUNT 3.29 MIL/MM3 (4.50-5.90); WHITE BLOOD COUNT 7.1 TH/MM3 (4.0-11.0)
[2016-10-20 23:34] LABS: AST (GOT) 23 U/L (15-37); BICARBONATE 21.9 MEQ/L (21.0-32.0); BLOOD UREA NITROGEN 75 MG/DL (7-18); GLOMERULAR FILTRATION RATE 15 ML/MIN (>89)
[2016-10-20 23:38] LABS: ALKALINE PHOSPHATASE 147 U/L (45-117); ALT (GPT) 29 U/L (12-78); TOTAL BILIRUBIN ADULT 0.7 MG/DL (0.2-1.0)
[2016-10-21] VITALS (16 sets, daily range): BP systolic 73–126; BP diastolic 42–58; PULSE 70–95; RESP 18–26; TEMP 97.6–98; O2SAT 94–98
[2016-10-21] MEDS ORDERED: TERBUTALINE INJ 1 MG/ML AMP SQ PRN (00:15)
[2016-10-21] MEDS ORDERED: NOREPINEPHRINE-DEXTROSE DRIP 250 ML IV SCH (00:15)
[2016-10-21 00:17] LABS: ANION GAP 15 MEQ/L (5-15); CHLORIDE 97 MEQ/L (98-107); POTASSIUM 3.9 MEQ/L (3.5-5.1); SODIUM (NA) 134 MEQ/L (136-145)
[2016-10-21] MEDS ORDERED: SODIUM CHLOR 0.9% 1000 ML INJ 1,000 ML IV SCH (00:31)
[2016-10-21] MEDS ORDERED: LACTULOSE SYRUP 20 GM/30 ML CUP PO PRN (00:45)
[2016-10-21] MEDS ORDERED: RESP: ALBUTEROL 2.5 MG/IPRATROPIUM 0.5 MG NEB (PRN) INH (00:45)
[2016-10-21] MEDS ORDERED: SENNOSIDES 8.6 MG TAB PO PRN (00:45)
[2016-10-21] MEDS ORDERED: ONDANSETRON HCL 4 MG/2 ML VIAL IV PRN (00:45)
[2016-10-21] MEDS ORDERED: CHLORHEXIDINE GLUCONATE 2 % 1 PACK (2 CLOTHS) TOP PRN (00:45)
[2016-10-21] MEDS ORDERED: MAGNESIUM HYDROXIDE SUSP 30 ML CUP PO PRN (00:45)
[2016-10-21] MEDS ORDERED: ACETAMINOPHEN 325 MG TAB PO PRN (00:45)
[2016-10-21] MEDS ORDERED: BISACODYL 10 MG SUPP RECTAL PRN (00:45)
[2016-10-21] MEDS ORDERED: TEMAZEPAM 15 MG CAP PO PRN (00:45)
[2016-10-21] MEDS ORDERED: MISCELLANEOUS NURSING INFORMATION XX SCH (00:45)
--- NOTE | 2016-10-21 01:44 | HHI.HP ---
HPI Service Critical Care Medicine Primary Care Physician Fay Rubalcava MD Admission Diagnosis septic shock, severe cardiomyopathy Diagnosis: Chief Complaint: Fever, chills. Travel History International Travel<30 Days: No Contact w/Intl Traveler <30 Da: No Traveled to Known Affected Are: No History of Present Illness 71 y/o man presents with acute onset fever and chills. Initial BP in ED normotensive, but thereafter hypotensive with MAP 52 - 62 range. Skin clammy, tepid. He is diaphoretic. Temp 101.7 at home, 99.7 in ED. Has absolutely no complaints of pain, nausea, dysuria, cough. PICC placed 2-3 weeks ago at [facility] right arm for continuous dobutamine therapy. CKD, DM, 2. He looks surprisingly well but is clearly diaphoretic. PIP/LATRELL and vancomycin started in ED. Past Family Social History Allergies: Coded Allergies: Shellfish (Verified Allergy, Severe, Rash, 09/25/16) Past Medical History Past Medical History Narrative Medical List of his past medical, surgical, social and family history was reviewed from the nursing note. Cancer: No Cardiovascular Problems: Yes (PACEMAKER) Congestive Heart Failure: Yes (NEW ONSET THIS VISIT) Diabetes: Yes Patient Takes Glucophage: No Endocrine: Yes Gastrointestinal Disorders: No Genitourinary: Yes Hypertension: Yes Immune Disorder: No Implanted Vascular Access Dvce: Yes Musculoskeletal: No Neurologic: No Psychiatric: No Reproductive: No Respiratory: Yes ?: Not Past Surgical History Cardiac Surgery: Yes (CABG 10YRS AGO PACEMAKER) Pacemaker: Yes Other Surgery: Yes Social History Alcohol Use: No Tobacco Use: No Substance Use: No Allergies-Medications Allergies-Medications (Allergen,Severity, Reaction): Coded Allergies: Shellfish (Verified Allergy, Severe, Rash, 09/25/16) Comments List of his allergies reviewed from the nursing note. Reported Meds & Prescriptions Reported Meds & Active Scripts Active Reported Ciprofloxacin Opth Drops (Ciprofloxacin HCl) 0.3% Soln 2 Drop RIGHT EYE Q2H while awake x 5 days. Durezol Opth (Difluprednate Opth) 0.05% Emul Dobutamine-D5W 500 Mg/250 Ml Bag Humalog Inj (Insulin Human Lispro) 1,000 Unit/10 Ml Vial 1-9 Units SQ ACHS PRN Max dose at bedtime:( )units; sugars< 70,(0)units; sugars 150-199,(1)unit; sugars 200-249,(3)units; sugars 250-299,(5)units; sugars 300-349,(7)units; sugars more than 349,(9)units. Lantus Inj (Insulin Glargine) 1,000 Unit/10 Ml Vial 25 Units SQ HS Atorvastatin (Atorvastatin Calcium) 20 Mg Tab 20 Mg PO HS Calcitriol 0.25 Mcg Cap 0.25 Mcg PO DAILY Omeprazole 20 Mg Tab 20 Mg PO DAILY Carvedilol 3.125 Mg Tab 3.125 Mg PO BID Isosorbide Dinitrate 30 Mg Tab 30 Mg PO DAILY Temazepam 30 Mg Cap 30 Mg PO HS PRN Losartan (Losartan Potassium) 50 Mg Tab 50 Mg PO DAILY Aspirin Low Dose (Aspirin) 81 Mg Chew 81 Mg CHEW DAILY Physical Exam Vital Signs Vital Signs Date Time Temp Pulse Resp B/P Pulse Ox O2 Delivery O2 Flow Rate FiO2 10/21/16 01:03 81 18 100/53 95 10/21/16 00:34 91 18 92/47 95 10/21/16 00:10 73/42 10/20/16 22:59 80/58 10/20/16 22:48 18 96 10/20/16 22:01 99.7 112 18 123/80 97 Room Air Physical Exam P 88, BP 72/47, R 15, Sats 93% Head: Normal. Neck: Supple, no pain to motion. Airway widely patent. Lungs: Bilateral crackles, good air entry, comfortable respiratory pattern. Heart: RRR with frequent ectopic beat. 2/6 sys mur at apex.Neck veins are full when HOB elevated 30 degrees. Abdomen: Benign, soft. No tenderness or guarding. BS active. Extremities: Tepid but well perfused. No edema. Skin: Clammy, diaphoretic. Neuro: O X 3, alert, cooperative. Moves 4 limbs to command. Laboratory Laboratory Tests Test 10/20/16 22:41 White Blood Count 7.1 Red Blood Count 3.29 Hemoglobin 8.4 Hematocrit 26.2 Mean Corpuscular Volume 79.5 Mean Corpuscular Hemoglobin 25.6 Mean Corpuscular Hemoglobin 32.2 Concent Red Cell Distribution Width 17.0 Platelet Count 141 Mean Platelet Volume 10.1 Neutrophils (%) (Auto) 87.4 Lymphocytes (%) (Auto) 3.2 Monocytes (%) (Auto) 5.9 Eosinophils (%) (Auto) 3.3 Basophils (%) (Auto) 0.2 Neutrophils # (Auto) 6.2 Lymphocytes # (Auto) 0.2 Monocytes # (Auto) 0.4 Eosinophils # (Auto) 0.2 Basophils # (Auto) 0.0 CBC Comment DIFF FINAL Differential Comment Lactic Acid Level 1.8 Sodium Level 134 Potassium Level 3.9 Chloride Level 97 Carbon Dioxide Level 21.9 Anion Gap 15 Blood Urea Nitrogen 75 Creatinine 3.92 Estimat Glomerular Filtration 15 Rate Random Glucose 52 Calcium Level 7.9 Total Bilirubin 0.7 Aspartate Amino Transf 23 (AST/SGOT) Alanine Aminotransferase 29 (ALT/SGPT) Alkaline Phosphatase 147 Total Protein 6.7 Albumin 2.7 Date/Time Procedure Status Source Growth 10/20/16 22:41 Aerobic Blood Culture Received Blood Peripheral Pending 10/20/16 22:41 Anaerobic Blood Culture Received Blood Peripheral Pending Result Diagram: 10/20/16224010/20/162240 Assessment and Plan Assessment and Plan Assessment: 1. Severe sepsis. 2. End-stage ischemic cardiomyopathy, continuous dobutamine infusion. 3. CKD. 4. DM, Type 2 Plan: 1. No additional hydration. 2. Continue dobutamine. 3. Hold isosorbide for MAP < 65. 4. Continue carvedilol. 5. Levophed only for MAP < 60. 6. Heparin sq BID. 7. Continue PIP/LATRELL, hold additional vancomycin pending level. Overall impression: He is critically ill with circulatory shock, likely infectious etiology. His CXR is clear, no cough. No urinary symptoms. If UA clear will need to remove the PICC line. Blood cultures drawn. Critical Care 45 mins Pa Leroy MD October 21, 2016 01:44
[2016-10-21 03:49] LABS: BLOOD, URINE NEG (NEG); GLUCOSE,URINE NEG (NEG); KETONE, URINE NEG (NEG); NITRITE,URINE NEG (NEG); URINE COLOR YELLOW (YELLW/STRAW)
[2016-10-21 03:50] LABS: COMMENT (UR) CATH-CULT NOT IND; CULTURE IF INDICATED CATH CULTURE NOT IND
[2016-10-21] MEDS: HEPARIN SODIUM - SQ 10,000 UNITS/ML VIAL SQ SCH ×2 (03:52→13:11)
[2016-10-21] MEDS ORDERED: CHLORHEXIDINE GLUCONATE 2 % 1 PACK (2 CLOTHS) TOP SCH (04:00)
[2016-10-21] MEDS: PIPERACIL-TAZO 2.25 GM PREMIX 50 ML IV SCH ×2 (06:55→13:11)
[2016-10-21 09:00] LABS: AUTOMATED NEUTROPHIL # 3.8 TH/MM3 (1.8-7.7); BASOPHIL % 0.4 % (0.0-2.0); EOSINOPHIL # 0.3 TH/MM3 (0-0.4); EOSINOPHIL % 6.2 % (0.0-4.0); HEMATOCRIT 26.4 % (39.0-51.0); HEMO FLAGS DIFF FINAL; LYMPH % 5.6 % (9.0-44.0); LYMPHOCYTE # 0.3 TH/MM3 (1.0-4.8); MEAN CELL VOLUME 81.9 FL (80.0-100.0); MEAN CORPUSCULAR HEMOGLOBIN 25.8 PG (27.0-34.0); MEAN CORPUSCULAR HGB CONC 31.5 % (32.0-36.0); MONO % 7.1 % (0.0-8.0); NEUT % 80.7 % (16.0-70.0); PLATELET COUNT 126 TH/MM3 (150-450); RED BLOOD COUNT 3.23 MIL/MM3 (4.50-5.90); RED CELL DISTRIBUTION WIDTH 17.1 % (11.6-17.2); WHITE BLOOD COUNT 4.7 TH/MM3 (4.0-11.0)
[2016-10-21] MEDS ORDERED: PANTOPRAZOLE SOD 20 MG DELAYED RELEASE TAB PO SCH (09:00)
[2016-10-21] MEDS ORDERED: ASPIRIN 81 MG CHEW TAB CHEW SCH (09:00)
[2016-10-21] MEDS ORDERED: CARVEDILOL 3.125 MG TAB PO SCH (09:00)
[2016-10-21] MEDS ORDERED: DOCUSATE SODIUM 50 MG/SENNA 8.6 MG TAB PO SCH (09:00)
[2016-10-21] MEDS ORDERED: ISOSORBIDE DINITRATE 10 MG TAB PO SCH (09:00)
--- NOTE | 2016-10-21 11:35 | HHI.DS ---
Discharge Summary Admission Date October 21, 2016 at 00:24 Discharge Date: October 21, 2016 Admitting Diagnosis septic shock, severe cardiomyopathy (1) Congestive heart failure (CHF) ICD Code: I50.9 Diagnosis: Principal (2) Chronic kidney disease (CKD) ICD Code: N18.9 Diagnosis: Principal (3) HTN (hypertension) ICD Code: I10 Diagnosis: Principal (4) DM (diabetes mellitus) ICD Code: E11.9 Diagnosis: Principal (5) Chronic systolic (congestive) heart failure ICD Code: I50.22 Diagnosis: Principal (6) Bilateral pleural effusion ICD Code: J90 Diagnosis: Principal (7) Septic shock ICD Code: A41.9 Diagnosis: Principal (8) Renal failure ICD Code: N19 (9) Cardiomyopathy ICD Code: I42.9 Diagnosis: Principal Procedures none Brief History 71 y/o man presents with acute onset fever and chills. Initial BP in ED normotensive, but thereafter hypotensive with MAP 52 - 62 range. Skin clammy, tepid. He is diaphoretic. Temp 101.7 at home, 99.7 in ED. Has absolutely no complaints of pain, nausea, dysuria, cough. PICC placed 2-3 weeks ago at [facility] right arm for continuous dobutamine therapy. CKD, DM, 2. He looks surprisingly well but is clearly diaphoretic. PIP/LATRELL and vancomycin started in ED. CBC/BMP: 10/21/16 0834 10/20/16 2241 Significant Findings Laboratory Tests Test 10/20/16 10/21/16 10/21/16 22:41 03:20 08:34 Red Blood Count 3.29 MIL/MM3 3.23 MIL/MM3 (4.50-5.90) (4.50-5.90) Hemoglobin 8.4 GM/DL 8.3 GM/DL (13.0-17.0) (13.0-17.0) Hematocrit 26.2 % 26.4 % (39.0-51.0) (39.0-51.0) Mean Corpuscular Volume 79.5 FL (80.0-100.0) Mean Corpuscular Hemoglobin 25.6 PG 25.8 PG (27.0-34.0) (27.0-34.0) Platelet Count 141 TH/MM3 126 TH/MM3 (150-450) (150-450) Neutrophils (%) (Auto) 87.4 % 80.7 % (16.0-70.0) (16.0-70.0) Lymphocytes (%) (Auto) 3.2 % 5.6 % (9.0-44.0) (9.0-44.0) Lymphocytes # (Auto) 0.2 TH/MM3 0.3 TH/MM3 (1.0-4.8) (1.0-4.8) Sodium Level 134 MEQ/L (136-145) Chloride Level 97 MEQ/L (98-107) Blood Urea Nitrogen 75 MG/DL (7-18) Creatinine 3.92 MG/DL (0.60-1.30) Estimat Glomerular Filtration 15 ML/MIN (>89) Rate Random Glucose 52 MG/DL (74-106) Calcium Level 7.9 MG/DL (8.5-10.1) Alkaline Phosphatase 147 U/L (45-117) Albumin 2.7 GM/DL (3.4-5.0) Urine Leukocyte Esterase TRACE (NEG) Mean Corpuscular Hemoglobin 31.5 % Concent (32.0-36.0) Eosinophils (%) (Auto) 6.2 % (0.0-4.0) Imaging Last Impressions Chest X-Ray 10/20/16 4448 Signed Impressions: Service Date/Time: September 22:44 - CONCLUSION: Stable bilateral pleural effusions right clearly larger than left. Heart remains enlarged.. Jhonny Steele MD PE at Discharge Head: Normal. Neck: Supple, no pain to motion. Airway widely patent. Lungs: Bilateral crackles, good air entry, comfortable respiratory pattern. Heart: RRR with frequent ectopic beat. 2/6 sys mur at apex.Neck veins are full when HOB elevated 30 degrees. Abdomen: Benign, soft. No tenderness or guarding. BS active. Extremities: Tepid but well perfused. No edema. Skin: Clammy, diaphoretic. Neuro: O X 3, alert, cooperative. Moves 4 limbs to command. Transfer Summary D/W Dr. Michael Paulson [phone] is currently hemodynamically stable. Admitted with severe sepsis unclear source. Currently on Zosyn and received 1 dose of vancomycin ED. Creatinine elevated at 3.92. Baseline as of 07/15 was 2.8. Holding antihypertensives currently including losartan. Patient is currently hemodynamically stable and will transfer to [facility]. Hospital Course Assessment: 1. Severe sepsis. 2. End-stage ischemic cardiomyopathy, continuous dobutamine infusion. 3. CKD. 4. DM, Type 2 Plan: 1. No additional hydration. 2. Continue dobutamine. 3. Hold isosorbide for MAP < 65. 4. Continue carvedilol. 5. Levophed only for MAP < 60. 6. Heparin sq BID. 7. Continue PIP/LATRELL, hold additional vancomycin pending level. Overall impression: He is critically ill with circulatory shock, likely infectious etiology. His CXR is clear, no cough. No urinary symptoms. If UA clear will need to remove the PICC line. Blood cultures drawn. Pt Condition on Discharge: Stable Discharge Disposition: Disch to Another Hospital Discharge Instructions DIET: Follow Instructions for: Heart Healthy Diet, Diabetic Diet Activities you can perform: Regular-No Restrictions Andriy Kerr MD October 21, 2016 11:35
[2016-10-21] MEDS ORDERED: ALBUMIN HUMAN 25% 25 GM/100 ML BAGP IV ONE ×2 (11:49→12:30)
[2016-10-21] MEDS ORDERED: DOBUTamine INJ 1,000 MG in DEXTROSE 5% IN WATER INJ 170 ML IV SCH ×2 (15:00)
[2016-10-21] MEDS ORDERED: INSULIN DETEMIR 100 UNITS/ML VIAL SQ SCH (21:00)
[2016-10-21] MEDS ORDERED: ATORVASTATIN 20 MG TAB PO SCH (21:00)
== END 2016-10-21 16:10 | disposition short-term general hospital (02) | DRG 871 ==
LOC: NEPC 21:58 → NEDA 10-21 00:24 → N03A 10-21 01:41
PROVIDERS: ADMIT Surgery Surgical Critical Care; ATTEND Surgery Surgical Critical Care
DX: A41.9 Sepsis, unspecified organism (principal); R65.21 Severe sepsis with septic shock; R57.8 Other shock; I50.22 Chronic systolic (congestive) heart failure; I12.9 Hypertensive chronic kidney disease with stage 1 through stage 4 chronic kidney disease, or unspecified chronic kidney disease; N18.9 Chronic kidney disease, unspecified; E11.9 Type 2 diabetes mellitus without complications; Z79.4 Long term (current) use of insulin; Z79.82 Long term (current) use of aspirin; I25.5 Ischemic cardiomyopathy; Z95.1 Presence of aortocoronary bypass graft; Z95.0 Presence of cardiac pacemaker
CPT/HCPCS: 71010; 80053; 81001; 82948; 83605; 85025; 87040; 87086; 87641; 96374; 96376; J1644; J2543; J3370; J7040; J7050; P9047